=== PATIENT | male | born 1975 | race Caucasian/White ===

== ENCOUNTER 2017-02-04 20:31 | Observation (INO) | payer MEDICAID, OTHER ==
--- NOTE | 2017-02-04 21:08 | ERNOTE ---
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 He exited the car and felt some what better. 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 He did not run the air conditioning due to the known exhaust leak. At the end of his day he walked four blocks to his home, wherein he developed substernal chest pain that was worse with ambulation. At one point he was diaphoretic, and short of breath. The dyspnea is worsened by exertion. History of left leg DVT and fracture, but denies a history of PE or cardiac disease. Denies any history of elicit drug use or alcohol abuse. No complaints of chest pain or other discomfort at this time. Date (Duration): 02/04/17 Severity: moderate Treatment ELEVATORS INSPECTOR: none Initiating event: Reports: exposure to smoke Frequency of episodes: Reports: no prior episodes Modifying Factors - (Improves): Reports: rest Modifying Factors (Worsens): Reports: activity Associated Symptoms-Dyspnea: Reports: chest pain/discomfort Review of Systems - Review of Systems Constitutional: Present: no symptoms reported EYE: Present: no symptoms reported ENT: Present: no symptoms reported Respiratory: Present: See HPI Cardiology: Present: See HPI Gastrointestinal/Abdominal: Present: nausea Genitourinary: Present: no symptoms reported Musculoskeletal: Present: no symptoms reported Neurological: Present: no symptoms reported Endocrine: Present: no symptoms reported Hematologic/Lymphatic: Present: no symptoms reported All Other Systems: All systems neg except as marked - Patient's Past Medical History Patient History - Medical: No pertinent hx Patient History - Cardiac/Respiratory: No pertinent hx Patient History - Cancer: No Hx of Cancer Patient History - Surgical Procedures: Orthopedic Patient History - Other: None - Family History Father Family History - Medical: Other - 79gout, on blood thinners Family History - Cardiac/Respiratory: History Unknown Family History - Cancer: No pertinent family hx Mother Family History - Medical: Other - 75RA, A. fib, blood thinners, stroke Family History - Cardiac/Respiratory: CVA/Stroke Family History - Cancer: No pertinent family hx - Social History Living Situations: spouse Psych History: No pertinent hx Smoking Status: Never smoker Alcohol Use: none Drug Use: none - Immunizations Immunizations Up to Date: Yes Physical Exam - Physical Exam General Appearance: Present: no apparent distress Head Exam: Present: normal inspection Eye Exam: Normal inspection: bilateral Ears, Nose, Throat: Present: normal ENT inspection Neck: Present: normal inspection Respiratory: Present: no respiratory distress Cardiovascular/Chest: Present: regular rate, rhythm Gastrointestinal/Abdominal: Present: nontender, nondistended, soft, no organomegaly Back Exam: Present: normal inspection Extremity Exam: Present: normal inspection, other - left leg is chronically larger than the right Neurological Exam: Present: alert, oriented, normal mood/affect, no motor/ sensory deficits Skin Exam: Present: normal color ED Progress - Results and Orders Patient's Lab Results:: I have reviewed the patient's lab results. - Vital Signs Patient's Vital Signs:: I have reviewed the patient's vital signs. Vital Signs: Vital Signs 02/04/17 02/04/17 20:31 20:35 Temperature 36.7 C Pulse Rate 89 Respiratory 19 Rate Blood Pressure 151/81 151/99 O2 Sat by Pulse 96 Oximetry - EKG EKG read: Interp. by me EKG Comments: sinus, rate 85, indeterminate axis - CT/Ultrasound CT/Ultrasound Narrative: Pulmonary embolus present. - Progress/Reassessment Chief Complaint: Dyspnea Progress:: Unchanged Departure Clinical Impression: Pulmonary emboli Qualifiers: Chronicity: acute - Departure Disposition: [facility] Condition: Stable
[2017-02-04 21:09] LABS: Hematocrit 43.7 % (42.0-52.0); Hemoglobin 14.9 gm/dL (13.5-18.0); Mean Corpuscular Hemoglobin 27.3 pg (27-31); Mean Corpuscular Hgb Conc 34.1 g/dl (32-36); Neutrophil # 12.3 K/mm3 (1.3-6.0); Neutrophil % 75.1 % (42-75.0); Platelet Count 205 K/mm3 (150-450); Red Blood Count 5.46 M/mm3 (4.7-6.0); Red Cell Distribution Width 13.6 % (11.5-14.0); White Blood Count 16.3 K/mm3 (4.0-10.5)
[2017-02-04 21:11] LABS: Total Cells Counted 100
[2017-02-04 21:12] LABS: Methemoglobin % 0.3 % (0.41-1.15)
[2017-02-04 21:16] LABS: Carboxyhemoglobin % 1.5 % (0.5-1.5)
[2017-02-04 21:31] LABS: Anion Gap 13.9 mmol/L (6.8-13.8); BUN/Creatinine Ratio 17.6 (9.0-21.6); Calcium * 9.3 mg/dL (7.9-10.9); Carbon Dioxide 26.6 mmol/L (24-32.6); Estimated Creat Clear 130.7; Potassium 3.5 mmol/L (3.4-4.6)
[2017-02-04 21:33] LABS: Troponin I 0.416 ng/ml (0.00-0.10)
[2017-02-04 21:34] LABS: Band 2 % (0-2.0); Eosinophil 1 % (0-3); Lymphocyte 13 % (20-51); Monocyte 9 % (0-9); Neutrophil 75 % (42-75); Neutrophil # 12.2 K/mm3 (1.3-6.0)
[2017-02-04 21:36] LABS: Dohle Bodies Trace
[2017-02-04] MEDS ORDERED: ASPIRIN 81 MG TAB.CHEW PO ONE (21:36)
[2017-02-04 21:37] LABS: Platelet Estimate Normal (NORMAL); RBC Morphology Normal (NORMAL)
[2017-02-04] MEDS ORDERED: ASPIRIN 81 MG TAB.CHEW ONE (21:39)
[2017-02-04] MEDS ORDERED: ENOXAPARIN SODIUM 100 MG/ML SYRG SC ONE ×2 (21:44→22:08)
[2017-02-04] MEDS ORDERED: ACETAMINOPHEN 500 MG TABLET PO ONE ×2 (21:45)
[2017-02-04] MEDS ORDERED: ENOXAPARIN SODIUM 30 MG/0.3 ML SYRG SC ONE (22:07)
[2017-02-05] MEDS ORDERED: ENOXAPARIN SODIUM 100 MG, ENOXAPARIN SODIUM 40 MG SC SCH ×2 (09:00)
--- NOTE | 2017-02-05 10:26 | HP ---
Chief Complaint - Chief Complaint Date of Service: 02/05/17 Time of Service: 10:12 Chief Complaint: sob and difficulty in breathing on the day of admission. History of Present Illness: HISTORY OF PRESENT ILLNESS: Patient is a 42-year-old WM with a H/O DVT in LT lower leg in 12/2013 [ S/P fibula fracture and surgery] who started having SOB while sitting in a car with an exhaust leak on 02/04/2017. He felt he was exposed to carbon monoxide and felt better after he exited his car. 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 He did develop some chest pain, diaphoresis while walking to his home which is 4 blocks away. Evaluation in the ER showed a day elevated d-dimer >10.0, troponin 0.418, WBC 16.3. CTA showed large right-sided PE with emboli seen in the RT main pulmonary artery extending to all 3 segmental and subsegmental lobar branches of the RT lung and segmental and subsegmental pulmonary emboli within the LT lower lobe pulmonary arteries. Patient was given Tylenol 1 g PO X1, ASA 325 mg PO x1, Lovenox 130 mg subcutaneous 1 and then admitted into Observation, telemetry. EKG reviewed showed NSR, 85/m,w/o RV strain. CXR negative for infitrate. - Patient's Past Medical History Patient History - Medical: No pertinent hx Additional info: PAST MEDICAL HISTORY: Fracture of LT fibula [ just above LT ankle] 2013]; DVT LT lower leg[ 12/2013]; chronic LT lower leg swelling. Asthma. Patient History - Cancer: No Hx of Cancer Additional Info: PAST SURGICAL HISTORY: Fracture of fibula 2 surgeries; plate placed at [place], screws placed at [facility]. Patient History - Other: None - Family History Father Family History - Medical: Other - 78gout, on blood thinners Mother Family History - Medical: Other - 75RA, A. fib, blood thinners, stroke Family History - Cardiac/Respiratory: CVA/Stroke Family History - Cancer: No pertinent family hx - Social History Living Situations: spouse Abuse History: No History of abuse Psych History: No pertinent hx Smoking Status: Never smoker Have you smoked in the past 12 months: No Alcohol Use: none Drug Use: none - Immunizations Immunizations Up to Date: Yes Allergies/Adverse Reactions: Allergies Allergy/AdvReac Type Severity Reaction Status Date / Time No Known Allergies Allergy Verified 02/04/17 23:25 Home Medications: HOME MEDICATIONS Rivaroxaban [Xarelto] 15 mg PO BID #42 tablet 02/05/17 [Last Taken Unknown] Rivaroxaban [Xarelto] 20 mg PO DAILY #30 tablet 02/05/17 [Last Taken Unknown] Exam - Exam Vital Signs: Vital Signs - Last Taken Temp 36.9 C 02/05/17 06:00 Pulse 66 02/05/17 06:00 Resp 18 02/05/17 06:00 BP 100/55 02/05/17 06:00 Pulse Ox 97 02/05/17 06:00 Constitutional: Present: Young, Obese - in NAD ENT Exam: Present: hearing grossly normal, moist mucous membranes Eye Exam: bilateral eye: PERRL, EOMI Neck: Present: normal inspection, trachea midline - thick neck Respiratory: Present: lungs clear, normal breath sounds. Absent: no respiratory distress Cardiovascular/Chest: Present: regular rate, rhythm. Absent: tachycardia Peripheral Pulses: carotid (R): 2+, carotid (L): 2+ Abdomen: Present: Normal bowel sounds, soft, nontender, obese /Rectal: Present: Exam deferred Extremity: Present: normal range of motion, other - LT leg larger than RT [ chronic ] tommy above ankle. Skin Exam: Present: normal color, warm/dry Neurologic: Present: alert, oriented x 3 Appearance: Present: appropriate appearance, appropriate insight, neat Thoughts: Present: normal thought pattern, no apparent hallucination, normal mood /affect Diagnostic Studies: Laboratory Tests 02/04/17 21:05 WBC 16.3 H Hgb 14.9 Hct 43.7 Plt Count 205 Neutrophils % (Manual) 75 Band Neuts % (Manual) 2 02/04/17 21:12 Plasma Sodium 138 Potassium 3.5 Chloride 101 Carbon Dioxide 26.6 BUN 18 Creatinine 1.02 Random Glucose 107 Calcium 9.3 02/04/17 02/05/17 02/05/17 21:12 02:55 10:03 Troponin I 0.416 H* 0.352 H* 0.197 H* CTA: 02/04/2017: 1. Large pulmonary embolus burden with emboli seen in the RT main pulmonary artery extending into all 3 segmental and subsegmental lobar branches of the RT lung and segmental and subsegmental pulmonary emboli within the LT lower lobe pulmonary arteries. 2. The pulmonary artery is mildly dilated, correlate for pulmonary arterial hypertension. No definitive evidence for right heart strain. Mild fatty infiltration of the liver. Osseous structures are grossly WNL for age.. Upper abdominal structures are unremarkable aside for a small hiatal hernia and a right renal cyst. No lymphadenopathy. No effusions/pulmonary nodules consolidation or mass. 2. CXR: 02/04/2017 1. No acute cardiopulmonary pathology identified. 3. EK02/04/2017 NSR 85/m. nonspecific ST and T wave changes. Assessment/Plan - Procedures Results: 1. Large PE in right main pulmonary artery and LT lower lobe pulmonary arteries : Lovenox 140 mg SQ BID. Will have family caseworker see what kind of insurance patient has for further management. Since this is unprovoked PE; may require treatment for approximately 6 months. May need further work up. 2. Elevated Troponin: due to large PE and demand ischemia. EKG normal. Consider echocardiogram if patient has symptoms. 3. H/O DVT in LT leg s/p LT fibula surgery in 12/2013. on lovenox SQ BID for 3 m per pt. 4. Asthma: 5. Obesity: BMI 32.0
[2017-02-05 14:36] VITALS: BP 132/72
--- NOTE | 2017-02-05 16:06 | DS ---
(1) Pulmonary emboli Problem: Acute Qualifiers: Chronicity: acute Description of Stay: DATE OF ADMISSION: 02/04/2017. DATE OF DISCHARGE: 02/05/2017. DIAGNOSTICS: CTA 02/04/2017. DISCHARGE SUMMARY: Steve Sterling is a 42-year-old WM with a history of DVT in LT lower leg in 2013[ surgery for S/P fibula fracture] who started having SOB while sitting in a car with an exhaust leak on 02/04/17. 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 He felt better after he exited his car. He developed SOB, CP and diaphoresis while walking to his home which is 4 blocks away. Evaluation in the ER showed elevated d-dimer >10.0, WBC 16.3 K troponin 0.418. CTA on 02/04/17: Large pulmonary embolus burden with emboli seen in the RT main pulmonary artery extending to all 3 segmental and subsegmental lobar branches of the right lung and segmental and subsegmental pulmonary emboli within the left lower lobe pulmonary arteries. Pulmonary artery is mildly dilated, correlate for pulmonary arterial hypertension. Was admitted into observation telemetry. The patient was started on enoxaparin 130 mg SQ BID. . EKG NSR 85/m w/o RV strain. Patient was started on rivaroxaban [xarelto] 15 mg PO BID x 21 days and then 20 mg PO daily indefinitely[ based on his insurance coverage]. He was discharged in a stable condition as he was hemodynamically stable. Procedures Performed: none Results and Findings: Laboratory Tests 02/04/17 21:05 WBC 16.3 H Hgb 14.9 Hct 43.7 Plt Count 205 02/04/17 21:12 Plasma Sodium 138 Potassium 3.5 Chloride 101 Carbon Dioxide 26.6 BUN 18 Creatinine 1.02 Est GFR (Non-Af Amer) 86 Random Glucose 107 Calcium 9.3 02/04/17 21:12 D-Dimer Greater than 10.00 H 02/04/17 02/05/17 02/05/17 21:12 02:55 10:03 Troponin I 0.416 H* 0.352 H* 0.197 H* 02/04/17 21:12 Carboxyhemoglobin 1.5 Methemoglobin 0.3 L Discharge Disposition: Home self care Disposition: Home self-care Condition: Undetermined Discharge Activity: Activity as tolerated Discharge Diet: Low fat/chol, High Fiber Problem Oriented Discharge Instructions to Patient/Family: Pulmonary Embolism Additional Patient Instructions (free text): F/U with Dr Murillo in 1 week (Not a Wednesday per MD request). Patient does not have PCP. Patient to take XARELTO 21 mg PO BID X 21 DAYS W/FOOD THEN 20 MG PO DAILY W/ FOOD THERE AFTER. RTC to ER if S/S worsen. Can return to work on 02/09/2017. Follow up with Dr. Ponce 02/11 at 10:15 for paperwork appt. is 10:45. Prescriptions (Any new or edited meds): Rivaroxaban [Xarelto] 15 mg PO BID #42 tablet Rivaroxaban [Xarelto] 20 mg PO DAILY #30 tablet Complete Home Medications List: Complete Home Medication List: Rivaroxaban [Xarelto] 15 mg PO BID #42 tablet 02/05/17 Rivaroxaban [Xarelto] 20 mg PO DAILY #30 tablet 02/05/17
== END 2017-02-05 17:20 | disposition home or self-care (01) ==
LOC: ER 20:31 → MS 22:59 → INTOOBSV 22:59 → OBSVTOIN 22:59
PROVIDERS: ADMIT Internal Medicine; ATTEND Internal Medicine
DX: I26.99 Other pulmonary embolism without acute cor pulmonale (principal); Z86.718 Personal history of other venous thrombosis and embolism; Z79.01 Long term (current) use of anticoagulants; J45.909 Unspecified asthma, uncomplicated; E66.9 Obesity, unspecified; Z68.32 Body mass index [BMI] 32.0-32.9, adult
CPT/HCPCS: 36415; 71020; 71275; 80048; 82375; 84484; 85007; 85025; 85379; 93005; 94762; 96372; 99284; G0378